=== PATIENT | male | born 1980 | race Caucasian/White ===

== ENCOUNTER → 2016-05-29 | Outpatient (CLI) | payer MEDICARE, OTHER ==
[~2016-05-29] MED LIST: ATEN25 PO; CHL25 PO; PERCT PO
[2016-05-29 15:14] LABS: APPEARANCE,URINE CLOUDY (CLEAR); GLUCOSE, URINE (UA) NEGATIVE (NEGATIVE); KETONES,URINE NEGATIVE (NEGATIVE); LEUKOCYTE ESTERASE ,URINE LARGE (NEGATIVE); OCCULT BLOOD,URINE LARGE (NEGATIVE); PROTEIN,URINE SEE CONFIRM (NEGATIVE)
[2016-05-29 15:22] LABS: ADD UA MICROSCOPIC YES
[2016-05-29 15:43] LABS: RBC,URINE >100 /HPF (0-2); SQUAMOUS EPITHELIAL CELL,UR Few /LPF (None Seen); SULFOSALICYLIC ACID,URINE 3+ (Negative); WBC,URINE >100 /HPF (0-5)
== END | disposition home or self-care (01) ==
LOC: LABPV 14:40
PROVIDERS: ATTEND Physical Medicine & Rehabilitation
DX: N39.0 Urinary tract infection, site not specified (principal)
CPT/HCPCS: 87086